=== PATIENT | female | born 1955 | race Caucasian/White ===

== ENCOUNTER 2019-01-12 15:12 | Inpatient (IN) ==
[2019-01-12] MEDS ORDERED: 0.9 % Sodium Chloride 1,000 ML IVC ONE (15:29)
[2019-01-12] MEDS ORDERED: methylPREDNISolone 125 MG/2 ML VIAL IVP ONE (15:30)
[2019-01-12] MEDS ORDERED: Ipratropium/Albuterol Neb 3 ML IH ONE ×3 (15:30→17:50)
[2019-01-12] MEDS ORDERED: MAGNESIUM SULFATE 1 GM/25 ML IVPB ONE (15:31)
[2019-01-12] MEDS ORDERED: PIGGYBACK IVPB ONE (15:31)
[2019-01-12 15:53] LABS: Basophils # 0.1 K/mcL (0.0-0.2); Basophils % 0.7 %; Eosinophils # 0.3 K/mcL (0.0-0.6); Eosinophils % 4.2 %; Hematocrit 47.5 % (35.3-44.9); Hemoglobin 16.1 g/dL (11.5-15.4); Immature Granulocytes % 0.4 % (0-4); Lymphocytes # 0.9 K/mcL (0.6-4.6); Lymphocytes % 11.5 %; Mean Corpuscular HGB Conc 33.9 g/dL (31.6-35.5); Mean Corpuscular Hemoglobin 31.7 pg (28.0-33.3); Mean Corpuscular Volume 93.5 fL (83.0-100.0); Mean Platelet Volume 9.6 fL (9.4-12.4); Monocytes # 0.6 K/mcL (0.0-1.3); Monocytes % 8.2 %; Neutrophils # 5.7 K/mcL (1.6-8.9); Platelet Count 272 K/mcL (140-400); Red Blood Count 5.08 M/mcL (3.82-4.97); Red Cell Distribution Width 12.5 % (11.5-14.5); White Blood Count 7.7 K/mcL (4.3-11.1)
[2019-01-12 15:53] LABS: ABG Base Excess 1 mEq/L (-2 to 3); ABG HCO3 25 mEq/L (21-27); ABG Oxygen Saturation 91 % (95-98); ABG PCO2 38 mmHg (35-45); ABG PH 7.43 pH Units (7.32-7.45); ABG PO2 59 mmHg (85-104); ABG TCO2 26 mEq/L (20-26)
[2019-01-12] MEDS ORDERED: Ipratropium/Albuterol Neb 3 ML ONE (15:53)
[2019-01-12 17:28] LABS: BUN/Creatinine Ratio 20 (6-26); Blood Urea Nitrogen 11 mg/dL (8-23); Calcium 8.8 mg/dL (8.6-10.3); Carbon Dioxide 27 mEq/L (23-29); Chloride 108 mEq/L (98-107); Glucose 119 mg/dL (70-105); Osmolality,Calculated 297 (280-300); Potassium 4.4 mEq/L (3.5-5.1); Sodium 143 mEq/L (136-145); eGFR For African Americans > 60 (> 60); eGFR For Non-African Americans > 60 (> 60)
[2019-01-12 18:01] LABS: Bilirubin,Urine Negative (Negative); Blood,Urine Small (Negative); Clarity,Urine Clear (Clear); Color,Urine Yellow (Yellow); Glucose,Urine (UA) Normal (Normal); Ketones,Urine Negative (Negative); Leukocyte Esterase,Urine Negative (Negative); Nitrite,Urine Negative (Negative); PH,Urine 6.5 pH Units (5.0-8.0); Protein,Urine Negative (Neg-Trace); Specific Gravity,Urine 1.009 (1.010-1.025); Urobilinogen,Urine Normal (Normal)
[2019-01-12 18:05] LABS: Bacteria,Urine None Seen per hpf (None-Few); Hyaline Casts,Urine None Seen per lpf (None-Few); RBC,Urine 0-3 per hpf (0-3); Squamous Epithelial Cell,Urine Moderate per lpf (None-Few); WBC,Urine 0-3 per hpf (0-3)
[2019-01-12] MEDS ORDERED: cefTRIAXone 1,000 MG in Water for inj. (sterile) 10 ML IVP ONE (18:22)
[2019-01-12] MEDS ORDERED: Azithromycin 500 MG in 0.9 % Sodium Chloride 250 ML IVPB ONE (18:23)
[2019-01-12] MEDS ORDERED: predniSONE 20 MG TABLET PO ONE (18:45)
[2019-01-12] MEDS ORDERED: Nicotine 21 MG PATCH.TD24 TD PRN (19:05)
[2019-01-12] MEDS ORDERED: Nicotine 2 MG GUM BC PRN (19:05)
[2019-01-12] MEDS: Ipratropium/Albuterol Neb 3 ML IH SCH (19:49)
[2019-01-12 20:54] LABS: Adenovirus Not Detected (Not Detect); Bordetella Pertussis Not Detected (Not Detect); Chlamydophila pneumoniae Not Detected (Not Detect); Coronavirus 229E Not Detected (Not Detect); Coronavirus HKU1 Not Detected (Not Detect); Coronavirus NL63 Not Detected (Not Detect); Coronavirus OC43 Not Detected (Not Detect); Human Metapneumovirus Not Detected (Not Detect); Human Rhinovirus/Enterovirus DETECTED (Not Detect); Influenza A Subtype 2009 H1 Not Detected (Not Detect); Influenza A Untypeable Not Detected (Not Detect); Influenza B Not Detected (Not Detect); Mycoplasma pneumoniae Not Detected (Not Detect); Parainfluenza Virus 1 Not Detected (Not Detect); Parainfluenza Virus 2 Not Detected (Not Detect); Parainfluenza Virus 3 Not Detected (Not Detect); Parainfluenza Virus 4 Not Detected (Not Detect); Respiratory Syncytial Virus Not Detected (Not Detect)
[2019-01-12] MEDS ORDERED: Isovue-370 500 ML BOTTLE IVP ONE (21:13)
[2019-01-12 21:59] LABS: Magnesium 2.1 mg/dL (1.6-2.6); Phosphorous 3.1 mg/dL (2.7-4.5)
[2019-01-12 22:00] LABS: Troponin I < 0.03 ng/mL (< 0.04)
[2019-01-13] MEDS: Ipratropium/Albuterol Neb 3 ML IH SCH ×7 (00:21→22:51)
[2019-01-13] MEDS ORDERED: Acetaminophen 325 MG TABLET PO PRN (06:15)
[2019-01-13] MEDS: *HR* Enoxaparin 40 MG/0.4 ML SYRINGE SQ SCH (06:42)
[2019-01-13 07:14] LABS: BUN/Creatinine Ratio 24 (6-26); Blood Urea Nitrogen 12 mg/dL (8-23); Calcium 9.2 mg/dL (8.6-10.3); Carbon Dioxide 22 mEq/L (23-29); Chloride 107 mEq/L (98-107); Glucose 111 mg/dL (70-105); Osmolality,Calculated 290 (280-300); Potassium 3.9 mEq/L (3.5-5.1); Sodium 140 mEq/L (136-145); eGFR For African Americans > 60 (> 60); eGFR For Non-African Americans > 60 (> 60)
[2019-01-13] MEDS ORDERED: Azithromycin 250 MG TABLET PO SCH (09:00)
[2019-01-13] MEDS ORDERED: predniSONE 20 MG TABLET PO SCH (09:00)
[2019-01-13] MEDS ORDERED: Melatonin 3 MG TABLET PO PRN (09:56)
[2019-01-13] MEDS: Azithromycin 500 MG in 0.9 % Sodium Chloride 250 ML IVPB SCH (10:54)
[2019-01-13] MEDS: MethylPREDNISolone 40 MG/ML VIAL IVP SCH ×3 (10:55→20:49)
[2019-01-13] MEDS ORDERED: MethylPREDNISolone 40 MG/ML VIAL IVP SCH (16:00)
[2019-01-13] MEDS: 0.9 % Sodium Chloride 1,000 ML IVC SCH (17:36)
[2019-01-14] MEDS: 0.9 % Sodium Chloride 1,000 ML IVC SCH ×2 (01:53→15:10)
[2019-01-14 02:09] LABS: Hematocrit 39.3 % (35.3-44.9); Hemoglobin 13.1 g/dL (11.5-15.4); Mean Corpuscular HGB Conc 33.3 g/dL (31.6-35.5); Mean Corpuscular Hemoglobin 31.5 pg (28.0-33.3); Mean Platelet Volume 10.4 fL (9.4-12.4); Platelet Count 250 K/mcL (140-400); Red Blood Count 4.16 M/mcL (3.82-4.97); Red Cell Distribution Width 13.1 % (11.5-14.5); White Blood Count 9.9 K/mcL (4.3-11.1)
[2019-01-14 02:11] LABS: Mean Corpuscular Volume 94.5 fL (83.0-100.0)
[2019-01-14 02:24] LABS: BUN/Creatinine Ratio 44 (6-26); Blood Urea Nitrogen 23 mg/dL (8-23); Calcium 9.2 mg/dL (8.6-10.3); Carbon Dioxide 26 mEq/L (23-29); Chloride 108 mEq/L (98-107); Glucose 120 mg/dL (70-105); Osmolality,Calculated 299 (280-300); Phosphorous 4.2 mg/dL (2.7-4.5); Potassium 3.6 mEq/L (3.5-5.1); Sodium 142 mEq/L (136-145); eGFR For African Americans > 60 (> 60); eGFR For Non-African Americans > 60 (> 60)
[2019-01-14] MEDS: Ipratropium/Albuterol Neb 3 ML IH SCH ×6 (03:41→23:32)
[2019-01-14] MEDS: *HR* Enoxaparin 40 MG/0.4 ML SYRINGE SQ SCH (06:10)
[2019-01-14] MEDS: MethylPREDNISolone 40 MG/ML VIAL IVP SCH (09:10)
[2019-01-14] MEDS: Azithromycin 500 MG in 0.9 % Sodium Chloride 250 ML IVPB SCH (09:12)
[2019-01-14] MEDS: predniSONE 20 MG TABLET PO SCH (16:06)
[2019-01-15] MEDS: Ipratropium/Albuterol Neb 3 ML IH SCH ×6 (04:00→23:03)
[2019-01-15] MEDS: *HR* Enoxaparin 40 MG/0.4 ML SYRINGE SQ SCH (06:09)
[2019-01-15] MEDS: predniSONE 20 MG TABLET PO SCH (07:45)
[2019-01-15] MEDS: Azithromycin 250 MG TABLET PO SCH (09:37)
[2019-01-16] MEDS: Ipratropium/Albuterol Neb 3 ML IH SCH ×6 (03:16→23:51)
[2019-01-16] MEDS: *HR* Enoxaparin 40 MG/0.4 ML SYRINGE SQ SCH (05:48)
[2019-01-16] MEDS: predniSONE 20 MG TABLET PO SCH (08:15)
[2019-01-16] MEDS: Azithromycin 250 MG TABLET PO SCH (10:47)
[2019-01-16] MEDS: Budesonide/Formoterol 80/4.5 1 PUFF INH IH SCH (19:45)
[2019-01-17] MEDS: Ipratropium/Albuterol Neb 3 ML IH SCH ×4 (03:34→15:20)
[2019-01-17] MEDS: *HR* Enoxaparin 40 MG/0.4 ML SYRINGE SQ SCH (05:36)
[2019-01-17] MEDS: Budesonide/Formoterol 80/4.5 1 PUFF INH IH SCH (07:31)
[2019-01-17 07:59] VITALS: BP 140/86
[2019-01-17] MEDS: predniSONE 20 MG TABLET PO SCH (08:49)
== END 2019-01-17 18:03 | disposition home or self-care (01) | DRG 190 ==
LOC: EMEROOARM 15:12 → 2NENU 15:12 → SUATTDRO 18:16 → 2NENU 18:56
PROVIDERS: ADMIT Internal Medicine; ATTEND Internal Medicine